=== PATIENT | female | born 1975 | race American Indian/Alaskan Native ===

== ENCOUNTER 2021-12-24 06:18 | Observation (INO) | payer OTHER ==
[2021-12-18 10:13] LABS: Basophils % (Auto) 0.8 % (0.0-1.8); Eosinophils % (Auto) 0.7 % (0.0-4.3); Hemoglobin 12.2 gm/dl (10.1-14.3); Lymphocytes # (Auto) 1.1 K/mm3 (1.2-5.4); Lymphocytes % (Auto) 32.3 % (13.4-35.0); Mean Corpuscular HGB Conc 33 % (30-34); Mean Corpuscular Volume 86 fl (79-97); Monocytes # (Auto) 0.4 K/mm3 (0.0-0.8); Monocytes % (Auto) 12.6 % (0.0-7.3); Platelet Count 161 K/mm3 (140-440); Red Blood Count 4.31 M/mm3 (3.65-5.03)
[2021-12-18 10:14] LABS: Red Cell Distribution Width 20.6 % (13.2-15.2)
--- NOTE | 2021-12-18 13:00 | Anesthesia Consultation ---
Anesthesia Consult and Med Hx Date of service: 12/24/21 - Airway Anesthetic Teeth Evaluation: Good, Crowns (upper right molar) ROM Head & Neck: Adequate Mental/Hyoid Distance: Adequate Mallampati Class: Class II Intubation Access Assessment: Probably Good - Pulmonary Exam CTA: Yes - Cardiac Exam Cardiac Exam: RRR - Pre-Operative Health Status ASA Pre-Surgery Classification: ASA2 Proposed Anesthetic Plan: General Nerve Block: TAP/JES - Pulmonary Hx Smoking: No Hx Respiratory Symptoms: No - Cardiovascular System Hx Hypertension: No - Central Nervous System CVA: No - Endocrine Hx Renal Disease: No Hx Liver Disease: No Hx Insulin Dependent Diabetes: No Hx Non-Insulin Dependent Diabetes: No Hx Thyroid Disease: No - Hematic Hx Anemia: Yes (Fe infusions; no hx transfusions) - Other Systems Hx Cancer: Yes (hx L breast ca s/p mastectomy; no chemo or xrt) - Additional Comments Anesthesia Medical History Comments: No hx anesthetic complications.
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
[~2021-12-24 06:18] MED LIST: ACETAMINOPHEN 500 MG TAB PO SCH; CELECOXIB 200 MG CAP PO NR; GABAPENTIN 300 MG CAP PO NR; LACTATED RINGERS 1,000 ML IV SCH; MIDAZOLAM 2 MG/2 ML INJ IV NR; SCOPOLAMINE TRANSDERMAL PATCH 72 HR TD NR; ceFAZolin/Water 2 GM/20 ML 2 GM/20 ML SYRINGE IV NR; fentaNYL 100 MCG/2 ML INJ IV PRN
[2021-12-24] MEDS ORDERED: HYDROmorphone 1 MG/1 ML INJ ONE (07:19)
[2021-12-24] MEDS ORDERED: propofoL 200 MG/20 ML VIAL IV ONE (07:19)
[2021-12-24] MEDS ORDERED: ROCURONIUM 50 MG/5 ML INJ IV ONE (07:20)
[2021-12-24] MEDS ORDERED: LIDOCAINE MPF (2%) 20 MG/1 ML VIAL 5 ML ONE (07:20)
--- NOTE | 2021-12-24 07:22 | Anesthesia Day of Surgery ---
Anesthesia Day of Surgery - Day of Surgery Patient Examined: Yes Patient H&P Reviewed: Yes Patient is NPO: Yes
[2021-12-24] MEDS ORDERED: dexAMETHasone 4 MG/ML VIAL ONE (07:23)
[2021-12-24] MEDS ORDERED: BUPIVACAINE/PF (0.25%) 2.5 MG/ML 30 ML VIAL INFILTRATI ONE (07:23)
[2021-12-24] MEDS ORDERED: cloNIDine/PF 1,000 MCG/10 ML VIAL EP ONE (07:23)
[2021-12-24] MEDS ORDERED: NEOMY 40 MG/POLYMYXIN B 200,000 UNITS/ML (GU) AMPULE IR ONE ×2 (07:44→09:04)
[2021-12-24] MEDS ORDERED: ONDANSETRON 4 MG/2 ML INJ IV PRN ×2 (08:00→13:27)
[2021-12-24] MEDS ORDERED: oxyCODONE /ACETAMINOPHEN 5-325MG TAB PO PRN (08:00)
[2021-12-24] MEDS ORDERED: HYDROmorphone 1 MG/1 ML INJ IV PRN (08:00)
[2021-12-24] MEDS ORDERED: dexAMETHasone 20 MG/5 ML VIAL ONE (08:30)
[2021-12-24] MEDS ORDERED: SODIUM CHLORIDE 0.9% IRRIG SOLN 2000 ML IR ONE (09:05)
[2021-12-24] MEDS ORDERED: METHYLENE BLUE 50 MG/10 ML AMP ONE ×2 (09:41→10:05)
[2021-12-24] MEDS ORDERED: LACTATED RINGERS 1,000 ML ONE (10:08)
[2021-12-24] MEDS ORDERED: METHYLENE BLUE 50 MG/10 ML AMP IV ONE (10:09)
[2021-12-24] MEDS ORDERED: METHYLENE BLUE 50 MG/10 ML AMP IRRIGATION ONE (10:09)
[2021-12-24] MEDS ORDERED: SODIUM CHLORIDE 0.9% IRR 1,500 ML BOTTLE IR ONE (10:10)
[2021-12-24] MEDS ORDERED: KETOROLAC 30 MG/1 ML INJ ONE (10:36)
[2021-12-24] MEDS ORDERED: GLYCOPYRROLATE 0.4 MG/2 ML INJ ONE (10:36)
[2021-12-24] MEDS ORDERED: NEOSTIGMINE 10MG/10 ML INJ MDV ONE (10:36)
[2021-12-24] MEDS ORDERED: ONDANSETRON 4 MG/2 ML INJ ONE (10:36)
--- NOTE | 2021-12-24 13:14 | Post Anesthesia Evaluation ---
- Post Anesthesia Evaluation Patient Participated: Yes Airway Patent: Yes Stable Respiratory Function: Yes Nausea/Vomiting: No Temp > 96.8F: Yes Pain Manageable: Yes Adequeate Hydration: Yes Anesthesia Complications: No
[2021-12-24] MEDS ORDERED: hydrALAZINE 20 MG/1 ML INJ ONE (13:20)
[2021-12-24] MEDS ORDERED: hydrALAZINE 20 MG/1 ML INJ IV ONE (13:20)
[2021-12-24] MEDS ORDERED: NALOXONE 0.4 MG/1 ML INJ IV PRN (13:27)
[2021-12-24] MEDS ORDERED: traMADol 50 MG TAB PO PRN ×2 (13:27)
[2021-12-24] MEDS ORDERED: MORPHINE 2 MG/1 ML INJ IV PRN (13:27)
[2021-12-24] MEDS ORDERED: METOCLOPRAMIDE 10 MG/2 ML INJ IV PRN (13:27)
[2021-12-24] MEDS ORDERED: LACTATED RINGERS 1,000 ML IV SCH (13:27)
[2021-12-24] MEDS ORDERED: ONDANSETRON 4 MG ODT TAB PO PRN (13:27)
[2021-12-24] MEDS ORDERED: METOCLOPRAMIDE 10 MG TAB PO PRN (13:27)
[2021-12-24] MEDS ORDERED: ACETAMINOPHEN 325 MG TAB PO SCH (14:30)
[2021-12-24] MEDS: ACETAMINOPHEN 500 MG TAB PO SCH ×2 (14:30→23:07)
[2021-12-24] MEDS: ceFAZolin/NS 1 GM/50 ML 1 GM/50 ML BAG IV SCH ×2 (16:30→21:16)
--- NOTE | 2021-12-24 16:55 | Operative Report ---
Operative Report Operative Report: Date: 12/24/2021 Preoperative diagnosis: 1. Menorrhagia 2. Uterine fibroids 3. Body mass index of 25.3 kg/m 4. History of breast cancer Postoperative diagnosis: 1. Menorrhagia 2. Uterine fibroids 3. Body mass index of 25.3 kg/m 4. History of breast cancer 5. Endometriosis 6. Right ovarian cyst 7. Pelvic adhesion Procedure: 1. Robotic-assisted laparoscopic total hysterectomy with bilateral salpingectomy 2. Right ovarian cystectomy 3. Lysis of adhesion Surgeon: Renetta Ramires MD Air Conditioning Specialist: KATIANA Nair Anesthesiologist: Dr. Vitor Malloy Anesthesia: General endotracheal anesthesia EBL: Approximately 200 mL Findings: EUA: Uterus palpated to approximately 16 weeks. Uterus was sounded to 12 cm. Grossly normal tubes and ovaries. Endometriotic lesions noted on right uterosacral ligament and left pelvic sidewall. Left ovary adhered to posterior left uterus. Multiple uterine fibroids noted. Procedure: Patient was taken to the OR and placed in the supine position. General anesthesia was induced and an oral gastric tube was placed. Her neck and head were placed on foam support. Foam eye protection with goggles were secured in place. Then foam face protection was placed and secured. Foam shoulder pads were then positioned on her shoulders for Trendelenburg positioning. She was then placed in dorsolithotomy position. Exam under anesthesia as above. The abdomen and vagina were then prepped and draped in the usual sterile fashion. Timeout was performed. A Lowry catheter was inserted into the bladder with drainage of clear yellow urine. The operative speculum was introduced into the vagina and the anterior lip of the cervix was grasped with single-toothed tenaculum. The uterus was sounded to 12 cm. The cervix was progressively dilated to allow the large V care uterine manipulator. The bulb of the manipulator was inflated and the speculum and tenaculum were removed. The cup of the manipulator was placed around the cervix and the blue occluder of the manipulator was properly positioned in the vagina and secured. A laparotomy sponge that was saturated with a solution of polymyxin and saline was placed in the vagina to ensure pneumoperitoneum. Sterile gloves were placed and attention was turned to the abdomen. A 10 mm midline vertical supraumbilical incision was made approximately 10 cm superior to the elevated fundus of the uterus. A 10-12 mm trocar with the laparoscope and camera attached was introduced through this incision under direct visualization. The abdomen was insufflated. No obvious bowel, bladder, ureteral, or major vascular injury was noted. The patient was then placed in steep Trendelenburg position and the following trochars were placed under direct visualization: 8 mm robotic trochars were placed through incisions made in the bilateral midclavicular lower abdominal region approximately 10 cm lateral to the midline incision, and a 5 mm trocar was placed through an incision made in the right lower lateral pelvis. The 10 mm laparoscope was then replaced by a 5 mm laparoscope that was placed through the 5 millimeter lateral trocar. The 12 mm trocar was then removed and the Jake Aiken fascial closure device was placed through the incision and a 0 Vicryl was placed through the fascia. Once the suture was secured the 12 mm trocar was reintroduced. Once the trochars were in the appropriate positions, the da Sudha robot system was engaged. The EndoShears and bipolar device was placed through the 8 mm trochars and positioned then attention was turned to the console. The uterus was elevated and bilateral salpingectomy was performed. Each tube was removed through the 5 mm trocar and sent to pathology in separate containers. The left ovary was released from its adhesions on the left posterior uterus. Then the utero-ovarian ligaments were clamped, cauterized and incised bilaterally using 30 W of energy. There was a small cystic hemorrhagic structure attached to the right ovary that was removed and sent to pathology. Then the round ligaments were clamped, cauterized and incised bilaterally. The anterior leaf of the broad ligament was elevated and with careful blunt and sharp dissection the bladder flap was created and dissected away from the lower uterine segment and cervix. The posterior leaf of the broad ligament was dissected away from the uterine vessels. The cup of the uterine manipulator was palpated both anteriorly and posteriorly. The bladder was further dissected away from the lower uterine segment. The uterine vessels were then clamped and cauterized bilaterally. Blanching of the uterus was then noted. Attention was again turned to the anterior lower uterine segment and the bladder was confirmed to be away from the operative field. Then attention was turned again to the posterior where the cup of the manipulator was palpated and a colpotomy was performed down to the cup. The incision was extended in the lateral position to the uterine vessels that were again clamped and cauterized and incised. Continuing along the cup of the manipulator in a circumferential manner the colpotomy was completed. Attention was then turned to the vagina to remove the uterus. With manipulation and removal of fibroids from the uterus through the vagina the uterus and cervix were then able to be removed through the vaginal incision. While removing the uterus and cervix through the vagina blood-tinged urine was noted however after the uterus was removed the urine appeared to be clear. Attention was turned back to the console. The pelvis was irrigated with warm normal saline. A moist laparotomy sponge was placed in the vagina to maintain pneumoperitoneum. Saline diluted methylene blue (150 mL) was placed in the bladder to ensure no injury. No leaking of methylene blue was noted into the pelvis. Pelvic sidewalls were evaluated and the decision was made to give IV methylene blue because the course of the left ureter was difficult to visualize. On further inspection both ureters were visualized to be peristaltic, of normal diameter away from the operative anaya. The vagina cuff was reapproximated using V LOC 180 suture. Then a J stitch was performed to secure the suture. Again the pelvis was copiously irrigated with polymixin in warm normal saline. The laparotomy sponge was removed from the vagina. No obvious evidence of bowel, bladder, ureteral, or major vascular injury was noted. Once hemostasis was noted, Surgicel was applied to the operative field to ensure hemostasis. Then the instruments were removed, the robot was disengaged. The 12 mm trocar was removed and the fascia was ligated with the 0 Vicryl suture that was placed at the beginning of the procedure. The patient was taken out of Trendelenburg position, the abdomen was desufflated, the remaining trochars were removed. Incisions were reapproximated using 4-0 Monocryl in a subcuticular manner. Surgiseal was placed over the other incisions. There was some bleeding noted from the right midclavicular incision that was made hemostatic with the 4-0 Monocryl in a simple stitch. A Tegaderm was placed with a 4 x 4 to maintain pressure. Hemostasis was noted the vagina was then inspected, the cuff was palpated to be intact and no bleeding was noted and clear slightly green-tinged urine was draining into the Lowry bag from the bladder at the end of the procedure. Counts were correct 3. Patient was taken to recovery room in stable condition.
[2021-12-24] MEDS: KETOROLAC 30 MG/1 ML INJ IV SCH ×2 (17:18→18:30)
--- NOTE | 2021-12-24 17:26 | Event Note ---
Date: 12/24/21 Patient resting in bed, alert and appropriately responsive. No complaints. Copious drainage of clear yellow urine. SCDs on BLE and functioning james ropriately. Operative findings and procedure explained. Plan of care discussed. Questions encouraged and answered. She voiced understanding and agrees with POC.
[2021-12-24] MEDS ORDERED: ACETAMINOPHEN 500 MG TAB ONE ×2 (23:06)
[2021-12-25] MEDS: ACETAMINOPHEN 500 MG TAB PO SCH ×2 (01:07→10:47)
[2021-12-25] MEDS: KETOROLAC 30 MG/1 ML INJ IV SCH (05:55)
[2021-12-25 06:34] LABS: Hematocrit 32.8 % (30.3-42.9); Hemoglobin 11.2 gm/dl (10.1-14.3)
--- NOTE | 2021-12-25 09:49 | Discharge Summary ---
Providers - Providers Date of Admission: 12/24/21 11:22 Date of discharge: 12/25/21 Attending physician: TEJAL OREILLY Primary care physician: SRIRAM PENA Hospitalization Condition: Good Procedures: Robotic assisted laparoscopic total hysterectomy with bilateral salpingectomy, right ovarian cystectomy, lysis of adhesion Hospital course: Normal Unremarkable postoperative course Disposition: 01 HOME / SELF CARE / HOMELESS Final Discharge Diagnosis (Prints w/discharge instructions): Robotic assisted laparoscopic total hysterectomy with bilateral salpingectomy, right ovarian cystectomy, lysis of adhesion - Discharge Diagnoses (1) Menorrhagia Status: Resolved (2) Fibroids, intramural Status: Resolved (3) History of breast cancer Status: Chronic Core Measure Documentation - Palliative Care Palliative Care/ Comfort Measures: Not Applicable - Core Measures Any of the following diagnoses?: none Exam - Constitutional Vitals: Temp Pulse Resp BP Pulse Ox 98.3 F 50 L 16 135/78 98 12/25/21 07:33 12/25/21 07:33 12/25/21 07:33 12/25/21 07:33 12/25/21 08:00 General appearance: Present: no acute distress - Neck Neck: Present: supple - Respiratory Respiratory effort: normal Respiratory: bilateral: CTA - Cardiovascular Rhythm: regular - Extremities Extremities: no ischemia, No edema - Abdominal General gastrointestinal: Present: soft, non-tender, non-distended, normal bowel sounds - Integumentary Integumentary: Present: clear, warm, dry (Incisions: Clean, dry, intact. Right midclavicular incision dressed.) - Psychiatric Psychiatric: appropriate mood/affect, intact judgment & insight, memory intact, cooperative Plan Activity: other (No sex, no driving. Ambulate approximately 1 mile on your property a day. Void frequently. Use your incentive spirometer every hour while awake.) Weight Bearing Status: Full Weight Bearing Diet: regular (Eat small meals frequently. Drink approximately 65 ounces of water a day. Avoid spicy, high salt, high fat foods.) Wound: open to air, keep clean and dry Additional Instructions: Pain medication management precautions and instructions given. May shower, no baths. Call office for vaginal bleeding, fever, chills, nausea, and vomiting or any concerns or problems. Follow up with: SRIRAM PENA MD [Primary Care Provider] - 7 Days (During her postoperative course she has an elevated blood pressures that resolved with 1 dose of antihypertensive please discuss this with your primary care physician.) TEJAL OREILLY MD [Staff Physician] - (As scheduled) Prescriptions: Ibuprofen [Motrin 800 MG tab] 800 mg PO TID PRN #30 tablet PRN Reason: Pain oxyCODONE /ACETAMINOPHEN [Percocet 5/325 mg] 1 - 2 tab PO Q4HR PRN #10 tablet PRN Reason: Pain
[2021-12-25] MEDS ORDERED: oxyCODONE /ACETAMINOPHEN 5-325MG TAB PO PRN (11:58)
[2021-12-25] MEDS ORDERED: IBUPROFEN 800 MG TAB PO PRN (11:58)
--- NOTE | 2021-12-25 14:04 | Post Anesthesia Evaluation ---
- Post Anesthesia Evaluation Patient Participated: Yes Airway Patent: Yes Stable Respiratory Function: Yes Nausea/Vomiting: No Temp > 96.8F: Yes Pain Manageable: Yes Adequeate Hydration: Yes Anesthesia Complications: No Block Receding Appropriately: Yes Patient on Ventilator: No
[2021-12-25 14:07] VITALS: BP 131/80
== END 2021-12-25 14:30 | disposition home or self-care (01) ==
LOC: OR 06:18 → EDBD 08:00 → OB 11:22
PROVIDERS: ADMIT Obstetrics & Gynecology; ATTEND Obstetrics & Gynecology
DX: N92.0 Excessive and frequent menstruation with regular cycle (principal); Z20.822 Contact with and (suspected) exposure to COVID-19; N73.6 Female pelvic peritoneal adhesions (postinfective); D25.1 Intramural leiomyoma of uterus; N83.201 Unspecified ovarian cyst, right side; N80.9 Endometriosis, unspecified; G89.29 Other chronic pain; M54.2 Cervicalgia; Z90.710 Acquired absence of both cervix and uterus; Z85.3 Personal history of malignant neoplasm of breast; Z98.51 Tubal ligation status; Z79.899 Other long term (current) drug therapy; Z98.890 Other specified postprocedural states
CPT/HCPCS: 36415; 58552; 58662; 64488; 81025; 85014; 85018; 85025; 86850; 86900; 86901; 88302; 88305; 88307; 96365; 96366; 96375; 96376; G0378; J0360; J0690; J0735; J1100; J1170; J1815; J1885; J2250; J2704; J2710; J3010; J3490; J7120; Q9968; S2900; U0003; 64450; J2405